=== PATIENT | female | born 1945 | race Caucasian/White ===

== ENCOUNTER → 2018-04-17 | Outpatient (CLI) | payer OTHER ==
--- NOTE | 2018-04-17 16:23 | Diagnostic Imaging Report ---
EXAMINATION: Renal ultrasound. CLINICAL HISTORY :Unspecified renal malformation COMPARISON: <None available.> TECHNIQUE: Grayscale and color Doppler evaluation of the kidneys and bladder was performed in transverse and longitudinal planes. DISCUSSION: RIGHT KIDNEY: The right kidney measures 9.2 cm in length and shows normal echogenicity. No hydronephrosis, shadowing calculi or solid mass lesions. LEFT KIDNEY: The left kidney measures 11.2 cm in length and shows normal echogenicity. No hydronephrosis, shadowing calculi or solid mass lesions. 3.4 cm simple cyst in the midportion of the left kidney. Additional parapelvic cysts. BLADDER: Unremarkable. IMPRESSION: 1. Left renal 3.4 cm simple cyst and additional parapelvic cysts. 2. Otherwise, unremarkable renal ultrasound. Signed by: Dr. uRss Faria M.D. on 04/17/2018 4:19 PM
== END ==
LOC: US 15:20 → EDBD 15:45
PROVIDERS: ATTEND Urology
DX: Q63.8 Other specified congenital malformations of kidney (principal); N13.30 Unspecified hydronephrosis
CPT/HCPCS: 76770